=== PATIENT | female | born 1945 | race Caucasian/White ===

== ENCOUNTER 2020-12-07 13:28 | Emergency (ER) | payer OTHER ==
[~2020-12-07] VITALS: Ht 162.6 cm; Wt 117.9 kg
[~2020-12-07 13:28] MED LIST: APIX5TAB PO; ASPI-543 PO; ATOR20TA50 PO; CANA300T OR; DILT120C12 PO; DILT60TA PO; INSU70IN3 SC; LOSA100T33 PO; MET50T PO; METF-929 PO; METO-289 PO
[2020-12-07] MEDS ORDERED: cefTRIAXone 1GM/50ML D5W 50 ML IV ONE (13:45)
[2020-12-07 14:50] LABS: Basophils # (auto) 0.1 10 ^3/uL (0-0.2); Basophils % (auto) 0.5 % (0.0-2.0); Eosinophils # (auto) 0 10 ^3/uL (0-0.8); Eosinophils % (auto) 0.1 % (0.0-7.0); Hematocrit 32.5 % (36.0-46.0); Hemoglobin 10.5 g/dL (12.2-16.2); Lymphocytes # (auto) 1.2 10 ^3/uL (0.4-5.4); Lymphocytes % (auto) 6.8 % (10.0-50.0); Mean Corpuscular Hemoglobin 28.3 pg (28.0-32.0); Mean Corpuscular Hgb Conc. 32.3 g/dL (32.0-36.0); Mean Corpuscular Volume 87.8 fL (80.0-100.0); Monocytes # (auto) 1.3 10 ^3/uL (0-1.3); Monocytes % (auto) 7.8 % (0.0-12.0); Neutrophils # (auto) 14.4 10 ^3/uL (1.6-8.6); Neutrophils % (auto) 84.8 % (37.0-80.0); Nucleated Red Blood Cells % 0.1 %; Red Cell Distribution Width 16.6 % (11.8-14.3)
[2020-12-07 15:04] LABS: Albumin 2.3 g/dL (3.4-5.0); Anion Gap 15 (5-15); Blood Urea Nitrogen 37 mg/dL (7-18); Calcium 7.9 mg/dL (8.5-10.1); Carbon Dioxide 25 mmol/L (21-32); Chloride 91 mmol/L (98-107); Lipase 115 U/L (73-393); Potassium 3.1 mmol/L (3.5-5.1); Sodium 131 mmol/L (136-145)
[2020-12-07 15:09] LABS: Alanine Aminotransferase 27 U/L (13-56); Aspartate Aminotransferase 34 U/L (15-37); Bilirubin, Total 0.6 mg/dL (0.2-1.0); GFR African American 44 mL/min; GFR Non-African American 37 mL/min; Glucose 242 mg/dL (74-106); Total Protein 6.9 g/dL (6.4-8.2)
[2020-12-07 15:11] LABS: Alkaline Phosphatase 64 U/L (45-117)
[2020-12-07 15:39] LABS: Urine Bacteria NONE SEEN /hpf (None Seen); Urine Blood Negative /uL (Negative); Urine Specific Gravity 1.017 (1.001-1.035); Urine WBC 12 /hpf (0 - 5)
[2020-12-07] MEDS ORDERED: metroNIDAZOLE 500MG/100ML 100 ML IV ONE (15:45)
[2020-12-07] MEDS ORDERED: MORPHINE SULFATE 4 MG/ML SYR/VIAL ONE (15:47)
[2020-12-07] MEDS ORDERED: ONDANSETRON HCL 4 MG/2 ML VIAL ONE (15:47)
[2020-12-07] MEDS ORDERED: SODIUM CHLORIDE 0.9% 1,000 ML IV ONE ×2 (16:00)
[2020-12-07] MEDS ORDERED: MORPHINE SULFATE 4 MG/ML SYR/VIAL IV ONE (16:00)
[2020-12-07] MEDS ORDERED: ONDANSETRON HCL 4 MG/2 ML VIAL IV ONE (16:00)
[2020-12-07] MEDS ORDERED: POTASSIUM CHL 20MEQ/100ML 100 ML IV ONE (16:30)
[2020-12-07 20:09] VITALS: BP 126/61
== END 2020-12-07 20:02 | disposition home or self-care (01) ==
LOC: EDBD 13:28 → ER 13:28
DX: N39.0 Urinary tract infection, site not specified (principal); K46.9 Unspecified abdominal hernia without obstruction or gangrene; E43 Unspecified severe protein-calorie malnutrition; I11.0 Hypertensive heart disease with heart failure; I50.9 Heart failure, unspecified; E11.9 Type 2 diabetes mellitus without complications; Z68.41 Body mass index [BMI] 40.0-44.9, adult; I48.91 Unspecified atrial fibrillation; E78.5 Hyperlipidemia, unspecified; Z79.82 Long term (current) use of aspirin; Z79.4 Long term (current) use of insulin; Z79.899 Other long term (current) drug therapy; Z20.822 Contact with and (suspected) exposure to COVID-19
CPT/HCPCS: 36415; 71045; 74176; 80053; 81001; 83605; 83690; 83880; 84484; 85025; 87040; 87086; 87426; 93005; 96365; 96368; 96375; 99285; J0696; J2270; J2405; J3480; J3490; J7030; 99291

== ENCOUNTER 2024-08-28 01:48 | Emergency (ER) | payer OTHER ==
[~2024-08-28] VITALS: Ht 157.5 cm; Wt 88.6 kg
--- NOTE | 2024-08-28 02:13 | ED.PDOC ---
General HPI Comments 79-year-old female who came to ER via EMS for low back pains. Patient has history of hypertension, diabetes and recurrent UTIs. Patient currently being treated fro UTI with ciprofloxacin. States 2 days ago, she was undergoing some scans and she was required to lay still for 2 hours. About an hour later, they made her change positions. Patient claiming that laying flat for over an hour has given her back pains. Patient also complaining of pressure whenever she urinates. Chief Complaint: Back Pain Time Seen by MD: 02:12 Primary Care Provider: DR THOMPSON Reviewed notes: Nurses Notes Allergies: Coded Allergies: NO KNOWN ALLERGIES (Unverified , 06/08/13) Home Meds Active Scripts Metoprolol Tartrate (LOPRESSOR TABLET) 50 Mg Tb, 50 MG PO DAILY for 30 Days, #30 Prov:JODIE BULL MD 02/04/18 Apixaban Base (ELIQUIS) 5 Mg Tab, 5 MG PO BID for 30 Days, #60 TAB Prov:JODIE BULL MD 02/04/18 Diltiazem Hcl (Cardizem La) 120 Mg Cp, 120 MG PO DAILY for 30 Days, #30 CP Prov:JODIE BULL MD 02/04/18 Reported Medications Metoprolol Succinate (Metoprolol Succinate Er) 50 Mg Tab, 100 MG PO DAILY for 30 Days, MG 02/01/18 Losartan Potassium & Hydrochlo (Losartan Potassium/Hydroc) 1 Tab Tab, 1 TAB PO DAILY, #30 TAB 5 Refills 02/01/18 Aspirin (Aspir-Low) 81 Mg Tab, 81 MG PO DAILY for 30 Days, MG 02/01/18 Diltiazem Hcl (Diltiazem Hcl) 60 Mg Tab, 240 MG PO BID for 30 Days, MG 02/01/18 Atorvastatin Calcium (ATORVASTATIN CALCIUM) 20 Mg Tab, 1 TAB PO DAILY, #30 TAB 5 Refills 02/01/18 Canagliflozin (INVOKANA) 300 Mg Tab, 300 MG OR DAILY, TAB 02/01/18 Metformin HCl (Metformin Hydrochloride) 1,000 Mg Tab, 1000 MG PO BID, TAB 02/01/18 Insulin NPH Isophane & Reg (Hu (Novolin 70/30 (70-30) 100 Unit/ml) 1 Inj Inj, 1 INJ SC BID, INJ 02/01/18 Information Source: Patient Severity: Moderate Timing: Hours Duration: Since onset Has not urinated for: Minutes Prehospital treatment: None Onset: Spontaneous Symptoms: Dysuria, Other (back pains) History of: UTI Location: Abdomen Location male: R Scrotum associated signs and symptoms: Nausea, Back Pain Past Medical History PAST MEDICAL HISTORY: AFIB, CHF, DM, High Lipids, HTN, UTI'S Surgical History: Hernia Repair 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[employer] DRILLING History Family History Family History: Reviewed,noncontributory to illness Social History Smoker: Non-Smoker Alcohol: Denies ETOH Use Drugs: Denies Drug Use Lives In: Home Constitutional: denies: chills, diaphoresis, fatigue, fever, malaise, sweats, weakness, others EENTM: denies: blurred vision, double vision, ear bleeding, ear discharge, ear drainage, ear pain, ear ringing, eye pain, eye redness, hearing loss, mouth pain, mouth swelling, nasal discharge, nose bleeding, nose congestion, nose pain, photophobia, tearing, throat pain, throat swelling, voice changes, others Respiratory: denies: cough, hemoptysis, orthopnea, SOB at rest, shortness of breath, SOB with excertion, stridor, wheezing, others Cardiovascular: denies: chest pain, dizzy spells, diaphoresis, Dyspnea on exertion, edema, irregular heart beat, left arm pain, lightheadedness, palpitations, PND, syncope, others Gastrointestinal: denies: abdomen distended, abdominal pain, blood streaked bowels, constipated, diarrhea, dysphagia, difficulty swallowing, hematemesis, melena, nausea, poor appetite, poor fluid intake, rectal bleeding, rectal pain, vomiting, others Genitourinary: reports: dysuria, others (Low back pain); denies: abnormal vagina bleeding, burning, dyspareunia, flank pain, frequency, hematuria, incontinence, pain, , vagina discharge, urgency Neurological: denies: dizziness, fainting, headache, left sided numbness, left sided weakness, numbness, paresthesia, pre-existing deficit, right sided numbness, right sided weakness, seizure, speech problems, tingling, tremors, weakness, others Musculoskeletal: reports: back pain; denies: gout, joint pain, joint swelling, muscle pain, muscle stiffness, neck pain, others Integumetry: denies: bruises, change in color, change in hair/nails, dryness, laceration, lesions, lumps, rash, wounds, others Allergic/Immunocompromised: denies: Difficulty Healing, Frequent Infections, Hives, Itching, others Hematologic/Lymphatic: denies: anemia, blood clots, easy bleeding, easy bruising, swollen glands, others Endocrine: denies: excessive hunger, excessive sweating, excessive thirst, excessive urination, flushing, intolerance to cold, intolerance to heat, unexplained weight gain, unexplained weight loss, others Psychiatric: denies: anxiety, bipolar disorder, depression, hopeless, panic disorder, schizophrenia, sleepless, suicidal, others Physical Exam General Appearance: No Apparent Distress, Normal HEENT: Normal ENT Inspection, Pharynx Normal, TMs Normal Neck: Full Range of Motion, Non-Tender, Normal, Normal Inspection Respiratory: Chest Non-Tender, Lungs Clear, No Accessory Muscle Use, No Respiratory Distress, Normal Breath Sounds Cardiovascular: No Edema, No JVD, No Murmur, No Gallop, Normal Peripheral Pulses, Regular Rate/Rhythm Breast Exam: Deferred Gastrointestinal: No Organomegaly, Non Tender, No Pulsatile Mass, Normal Bowel Sounds, Soft Genitalia: Deferred Pelvic: Deferred Rectal: Deferred Extremities: No calf tenderness, Normal capillary refill, Normal inspection, Normal range of motion, Non-tender, No pedal edema Musculoskeletal : Apperance: Normal Neurologic: Alert, benzene still utility operator II-XII nml as Tested, No Motor Deficits, Normal Affect, Normal Mood, No Sensory Deficits Cerebellar Function: Normal Reflexes: Normal Skin: Dry, Normal Color, Warm Lymphatic: No Adenopathy Was a procedure done? Was a procedure done?: No Differential Diagnosis Kidney stone (Female): Musculoskeletal pain, Pancreatitis, Pyelonephritis, Strain, Urinary obstruction, Urolithiasis Urinary Problem (Female): Pyelonephritis, Urinary retention, Urolithiasis, UTI X-Ray, Labs, Meds, VS Vital Signs Date Time Temp Pulse Resp B/P (MAP) Pulse Ox O2 Delivery O2 Flow Rate FiO2 08/28/24 04:27 98.4 91 18 140/62 (88) 100 98.4 08/28/24 02:03 98.1 93 18 102/66 (78) 96 Lab Test 08/28/24 04:23 08/28/24 02:56 08/28/24 02:20 Range/Units POC Glucose 129 H 70-106 mg/dl Urine Color Light-yellow Yellow Urine Clarity Clear Clear Urine pH 5.5 5.0-9.0 Urine Specific [place] 1.013 1.001-1.035 Urine Protein Negative Negative Urine Ketones Negative Negative Urine Blood Negative Negative /uL Urine Nitrite Negative Negative Urine Bilirubin Negative Negative Urine Urobilinogen Normal Negative mg/dL Urine Leukocyte Esterase Negative Negative /uL Urine RBC 1 0 - 4 /hpf Urine Microscopic WBC 3 0-5 /HPF Urine Squamous Epithelial Cells Few <5 /hpf Urine Bacteria None seen None Seen /hpf Urine Glucose Normal Normal mg/dL White Blood Count 11.2 H 4.4-10.8 10^3/uL Red Blood Count 4.22 4.0-5.20 10^6/uL Hemoglobin 12.7 12.2-16.2 g/dL Hematocrit 38.3 36.0-46.0 % Mean Corpuscular Volume 90.8 80.0-100.0 fL Mean Corpuscular Hemoglobin 30.2 28.0-32.0 pg Mean Corpuscular Hemoglobin Concent 33.3 32.0-36.0 g/dL Red Cell Distribution Width 15.5 H 11.8-14.3 % Platelet Count 173 140-450 10^3/uL Mean Platelet Volume 9.0 6.9-10.8 fL Neutrophils (%) (Auto) 67.4 37.0-80.0 % Lymphocytes (%) (Auto) 18.8 10.0-50.0 % Monocytes (%) (Auto) 11.1 0.0-12.0 % Eosinophils (%) (Auto) 2.0 0.0-7.0 % Basophils (%) (Auto) 0.7 0.0-2.0 % Neutrophils # (Auto) 7.6 1.6-8.6 10 ^3/uL Lymphocytes # (Auto) 2.1 0.4-5.4 10 ^3/uL Monocytes # (Auto) 1.2 0-1.3 10 ^3/uL Eosinophils # (Auto) 0.2 0-0.8 10 ^3/uL Basophils # (Auto) 0.1 0-0.2 10 ^3/uL Nucleated Red Blood Cells 0.0 % Sodium Level 139 136-145 mmol/L Potassium Level 4.0 3.5-5.1 mmol/L Chloride Level 108 H 98-107 mmol/L Carbon Dioxide Level 22 20-31 mmol/L Anion Gap 9 5-15 Blood Urea Nitrogen 23 9-23 mg/dL Creatinine 1.11 H 0.550-1.02 mg/dL Glomerular Filtration Rate Calc 51 >90 mL/min BUN/Creatinine Ratio 20.7 H 10.0-20.0 Serum Glucose 120 H 74-106 mg/dL Calcium Level 10.2 8.7-10.4 mg/dL Time of 1ST Reevaluation: 02:07 Reevaluation 1ST: Unchanged Patient Education/Counseling: Diagnosis, Treatment Family Education/Counseling: No Family Present Departure 1 Departure Time of Disposition: 04:43 (Patient likely with musculoskeletal strain. Patient's workup is benign. She is ambulating without difficulty. We will discharge patient home with outpatient follow up) Impression: Primary Impression: Lumbar radiculopathy Additional Impression: Musculoskeletal pain Disposition: 01 HOME / SELF CARE / HOMELESS Condition: Stable Additional Instructions: You have lumbar radiculopathy. Your workup today was benign. For pain you can take the followinam: Ibuprofen 400mg with food Noon: Acetaminophen 1000mg 4pm: Ibuprofen 400mg with food 8pm: Acetaminophen 1000mg You were also prescribed muscle relaxers. Please take as directed. It is important to follow up with the regular doctor within 1 week. Please call for an appointment. If your symptoms worsen or you have any other concerns then please return to the ER. e-Prescriptions Cyclobenzaprine Hcl (Cyclobenzaprine Hcl) 5 Mg Tab 1 TAB PO TID PRN for 5 Days, #15 TAB Prov: JULIANNA REEDER MD 08/28/24 Discharged With: Self Critical Care Note Critical Care Time?: No Stability Stability form required: No Heart Score Heart Score: Heart Score Response (Comments) Value History N/A 0 EKG N/A 0 Age N/A 0 Risk Factors N/A 0 Troponin N/A 0 Total 0 I personally scribed for JULIANNA REEDER MD ([email or web address]) on 08/28/24 at 02:13. Electronically submitted by Vladislav Cuello ([email or web address]). I personally scribed for JULIANNA REEDER MD ([email or web address]) on 08/28/24 at 02:36. Electronically submitted by Vladislav Cuello ([email or web address]). JULIANNA REEDER MD Aug 28, 2024 02:13
[2024-08-28 02:58] LABS: Basophils # (auto) 0.1 10 ^3/uL (0-0.2); Basophils % (auto) 0.7 % (0.0-2.0); Eosinophils # (auto) 0.2 10 ^3/uL (0-0.8); Hematocrit 38.3 % (36.0-46.0); Hemoglobin 12.7 g/dL (12.2-16.2); Lymphocytes # (auto) 2.1 10 ^3/uL (0.4-5.4); Lymphocytes % (auto) 18.8 % (10.0-50.0); Mean Corpuscular Hemoglobin 30.2 pg (28.0-32.0); Mean Corpuscular Hgb Conc. 33.3 g/dL (32.0-36.0); Mean Corpuscular Volume 90.8 fL (80.0-100.0); Monocytes # (auto) 1.2 10 ^3/uL (0-1.3); Monocytes % (auto) 11.1 % (0.0-12.0); Neutrophils # (auto) 7.6 10 ^3/uL (1.6-8.6); Neutrophils % (auto) 67.4 % (37.0-80.0); Platelet Count (auto) 173 10^3/uL (140-450); Red Blood Cells 4.22 10^6/uL (4.0-5.20); Red Cell Distribution Width 15.5 % (11.8-14.3); White Blood Cell 11.2 10^3/uL (4.4-10.8)
[2024-08-28 03:11] LABS: Sodium 139 mmol/L (136-145)
[2024-08-28 03:12] LABS: Anion Gap 9 (5-15); Carbon Dioxide 22 mmol/L (20-31)
[2024-08-28 03:13] LABS: Calcium 10.2 mg/dL (8.7-10.4)
[2024-08-28 03:17] LABS: BUN/Creatinine Ratio 20.7 (10.0-20.0); Blood Urea Nitrogen 23 mg/dL (9-23); Chloride 108 mmol/L (98-107)
[2024-08-28 03:48] LABS: Glucose 120 mg/dL (74-106)
[2024-08-28 04:27] VITALS: BP 140/62; TEMP 98.4
[2024-08-28 04:27] LABS: Urine Bacteria None Seen /hpf (None Seen)
[2024-08-28 04:31] LABS: Urine Blood Negative /uL (Negative); Urine Clarity Clear (Clear); Urine Color Light-Yellow (Yellow); Urine Protein, UAD Negative (Negative); Urine Specific Gravity 1.013 (1.001-1.035); Urine Squamous Epithelial Cell FEW /hpf (<5); Urine Urobilinogen Normal (Negative); Urine WBC 3 /HPF (0-5); Urine pH 5.5 (5.0-9.0)
--- NOTE | 2024-08-28 04:41 | DVH ---
INDICATION: lower back pain COMPARISON: None TECHNIQUE: 2 views of the lumbar spine were obtained. IMPRESSION: There are severe degenerative changes in the visualized thoracic and lumbar spine with intervertebral disc space narrowing, large endplate osteophytes and facet arthropathy at every level. No evidence o f acute compression deformity.
[2024-08-28] MEDS ORDERED: CYCL-837 PO (04:45)
[2024-08-28] MEDS: CYCLOBENZAPRINE HCL 10 MG TAB PO ONE (04:54)
[2024-08-28] MEDS: HYDROcodone-ACET 5/325MG TAB PO ONE (04:54)
[2024-08-28 05:10] VITALS: PULSE 91; RESP 18; O2SAT 100
== END 2024-08-28 05:12 | disposition home or self-care (01) ==
LOC: EDSEX 01:48 → EDBD 01:48 → ER 01:48
DX: M54.16 Radiculopathy, lumbar region (principal); M79.10 Myalgia, unspecified site; I11.0 Hypertensive heart disease with heart failure; I50.9 Heart failure, unspecified; E11.9 Type 2 diabetes mellitus without complications; I48.91 Unspecified atrial fibrillation; E78.5 Hyperlipidemia, unspecified; Z79.01 Long term (current) use of anticoagulants; Z79.4 Long term (current) use of insulin; Z79.82 Long term (current) use of aspirin; Z79.84 Long term (current) use of oral hypoglycemic drugs; Z79.899 Other long term (current) drug therapy; Z87.440 Personal history of urinary (tract) infections; Z98.890 Other specified postprocedural states
CPT/HCPCS: 36415; 72100; 80048; 81001; 82962; 85025